=== PATIENT | male | born 1955 | race Caucasian/White ===

== ENCOUNTER 2017-04-01 15:29 | Emergency (ER) | payer SELFPAY ==
[2017-04-01 16:02] VITALS: BP 151/93
[2017-04-01] MEDS ORDERED: Lidocaine 2% PF * 5 ML VIAL INJ ONE (17:40)
--- NOTE | 2017-04-01 18:22 | UC ---
Laceration HPI - HPI Summary HPI Summary: 62 yo male fell today a few hours ago and lacerated his lower lip no dental trauma no jaw or neck pain Td UTD (about 6 mos ago) - History Of Current Complaint Chief Complaint: UCLaceration Stated Complaint: LIP LACERATION Time Seen by Provider: 04/01/17 17:28 Onset/Duration: Sudden Onset Severity: Mild Pain Intensity: 0 Pain Scale Used: 0-10 Numeric Aggravating Factors: Nothing Facial Trauma: 1 - laceration - Allergies/Home Medications Allergies/Adverse Reactions: Allergies Allergy/AdvReac Type Severity Reaction Status Date / Time No Known Allergies Allergy Verified 04/01/17 16:02 Home Medications: Home Medications NK [No Home Medications Reported] 04/01/17 [History Confirmed 04/01/17] PMH/Surg Hx/FS Hx/Imm Hx Previously Healthy: Yes - Surgical History Surgical History: None - Social History Alcohol Use: None Substance Use Type: None Smoking Status (MU): Never Smoked Tobacco Review of Systems Constitutional: Negative Skin: Negative Eyes: Negative ENT: Negative Respiratory: Negative Cardiovascular: Negative Gastrointestinal: Negative Genitourinary: Negative Motor: Negative Neurovascular: Negative Musculoskeletal: Negative Neurological: Negative Psychological: Negative Is Patient Immunocompromised?: No All Other Systems Reviewed And Are Negative: Yes Physical Exam Triage Information Reviewed: Yes Appearance: Well-Appearing, No Pain Distress, Well-Nourished Vital Signs: Initial Vital Signs Temp 98.3 F 04/01/17 15:57 Pulse 105 04/01/17 15:57 Resp 18 04/01/17 15:57 BP 151/93 04/01/17 15:57 Pulse Ox 99 04/01/17 15:57 Vital Signs Reviewed: Yes Eyes: Positive: Conjunctiva Clear ENT: Positive: Hearing grossly normal, Uvula midline. Negative: Nasal drainage , TMs normal Dental Exam: Normal Neck exam: Normal Respiratory: Positive: Lungs clear, Normal breath sounds, No respiratory distress Cardiovascular: Positive: RRR, No Murmur Musculoskeletal: Positive: ROM Intact, No Edema Neurological: Positive: Alert Psychological Exam: Normal Laceration Repair - Laceration Repair 1 Description: Irregular Laceration Size After Repair: Length (cm) - 1.4, Width (mm) - 3, Depth (mm) - 3 Modified For Repair: No Anesthesia Used: 2.0% Lido Cleansing Completed Via Routine Prep: Yes Irrigation With Pressure Irrigation Device: Yes Closure Method: Single Layer Suture Of: Mucus Membrane Suture Type: Nylon - 6-0 x 8 Laceration Course/Dx - Differential Dx - Laceration/Wound Provider Diagnoses: lower lip laceration Discharge - Discharge Plan Condition: Stable Disposition: HOME Patient Education Materials: Laceration (ED) Referrals: No Primary Care Phys,NOPCP [Primary Care Provider] - Additional Instructions: I suggest you gently clean laceration after eatling you can use soap and water or witchhazel gently dry apply a thin film of [employer] (available over the counter) soft no chew diet for 2-3 days as lip heals it will get a whitish film over it....this is normal for lip lacerations ice packs recheck for concerns of infection I suggest you have sutures removed in 5-7 days you have 8 stitches
== END 2017-04-01 18:44 | disposition home or self-care (01) ==
LOC: UCEAST 15:29
DX: S01.511A Laceration without foreign body of lip, initial encounter (principal); W19.XXXA Unspecified fall, initial encounter; Y93.9 Activity, unspecified; Y92.9 Unspecified place or not applicable
CPT/HCPCS: 12011; 99201; G0463

== ENCOUNTER 2018-07-26 10:12 | Emergency (ER) | payer SELFPAY ==
[2018-07-26] MEDS ORDERED: traMADol TAB* 50 MG PO ONE (11:04)
--- NOTE | 2018-07-26 11:06 | ED ---
Adult Trauma - HPI Summary HPI Summary: Pt is a 63 y/o M presenting to the ED with a chief complaint of a fall on . He states he was walking on top of a boat and fell off of it from a height of about 10-15 feet, hitting the dock on the way down on the L side of his chest. He reports pain in the L side of his back and anterior chest, as well as decreased ROM. Sx aggravated by movement of any kind. He denies LOC or hematuria. He is not on any anticoagulants and denies hx of DM or HTN. - History of Current Complaint Chief Complaint: EDChestWallPain Stated Complaint: POSS BROKEN RIB PER PT Time Seen by Provider: 07/26/18 10:52 Hx Obtained From: Patient Mechanism of Injury: Fall Loss of Consciousness: no loss of consciousness Onset/Duration: Started Days Ago, Still Present Onset of Pain: Immediate, Post Accident Onset Severity: Moderate Current Severity: Severe Pain Intensity: 8 Pain Scale Used: 0-10 Numeric Location: Chest - ribs Character: Aching Aggravating Factor(s): Movement Alleviating Factor(s): Nothing Associated Signs & Symptoms: Negative: Hematuria, Loss of Consciousness - Allergy/Home Medications Allergies/Adverse Reactions: Allergies Allergy/AdvReac Type Severity Reaction Status Date / Time No Known Allergies Allergy Verified 07/26/18 11:13 PMH/Surg Hx/FS Hx/Imm Hx Previously Healthy: Yes Endocrine/Hematology History: Denies: Hx Anticoagulant Therapy, Hx Diabetes, Hx Thyroid Disease Cardiovascular History: Denies: Hx Hypertension Respiratory History: Denies: Hx Asthma, Hx Chronic Obstructive Pulmonary Disease (COPD) GI History: Denies: Hx Ulcer Infectious Disease History: No Infectious Disease History: Denies: Hx Hepatitis, Hx Human Immunodeficiency Virus (HIV), Traveled Outside the [place] in Last 30 Days - Family History Known Family History: Negative: Cardiac Disease - Social History Alcohol Use: None Hx Substance Use: No Substance Use Type: Reports: None Hx Tobacco Use: No Smoking Status (MU): Never Smoked Tobacco Review of Systems Negative: hematuria Positive: Myalgia, Decreased ROM Neurological: Negative - LOC All Other Systems Reviewed And Are Negative: Yes Physical Exam - Summary Physical Exam Summary: Appearance: Well appearing, no pain distress Skin: warm, dry, reflects adequate perfusion Head/face: normal Eyes: EOMI, WENDI ENT: normal Neck: supple, non-tender Respiratory: CTA, breath sounds present Cardiovascular: RRR, pulses symmetrical Abdomen: non-tender, soft Musculoskeletal: tenderness over the L chest, strength/ROM intact Neuro: normal, sensory motor intact, A&Ox3 Triage Information Reviewed: Yes Vital Signs On Initial Exam: Initial Vitals Temp Pulse Resp BP Pulse Ox 98.3 F 104 16 154/101 95 07/26/18 10:13 07/26/18 10:13 07/26/18 10:13 07/26/18 10:13 07/26/18 10:13 Vital Signs Reviewed: Yes Diagnostics - Vital Signs Vital Signs Temp Pulse Resp BP Pulse Ox 07/26/18 10:13 98.3 F 104 16 154/101 95 - Laboratory Lab Statement: Any lab studies that have been ordered have been reviewed, and results considered in the medical decision making process. - Radiology Ribs w/ Chest XR Radiology Interpretation Completed By: Radiologist Summary of Radiographic Findings: Multiple L-sided rib fractures with a small L pleural effusion, without appreciable PTX. ED physician has reviewed this report. Adult Trauma Course/Dx - Course Course Of Treatment: Pt is a 63 y/o M presenting to the ED with L-sided chest pain d/t a 10-15 foot fall off of a boat on 07/24/18. He reports decreased ROM with this pain, with sx aggravated by movement. He denies LOC or hematuria. On physical exam, the pt had tenderness on the L chest area. I advised the pt to receive a CT scan to r/o any possible injury to his spleen, but he denied and adamantly stated he only wanted an XR to rule out a broken rib. Ribs w/ chest XR shows: Multiple L-sided rib fractures with a small L pleural effusion, without appreciable PTX. I discussed the results with the pt who further refused a CT scan d/t lack of insurance. I advised him he should have the imaging done but he adamantly refused. There is no further workup to be done, and the pt will be d/c'ed with a dx of multiple L rib fractures, of ribs 4, 5, 6 , and 7, with instructions to follow up with his PCP, as well as return with any new shortness of breath or other new or worsening symptoms. - Diagnoses Differential Diagnosis/HQI/PQRI: Positive: Contusion(s), Fracture, Hematoma(s) Provider Diagnoses: Multiple fractures of rib involving four or more ribs Discharge - Sign-Out/Discharge Documenting (check all that apply): Patient Departure Patient Received Moderate/Deep Sedation with Procedure: No - Discharge Plan Condition: Stable Disposition: HOME Prescriptions: Ibuprofen TAB* [Motrin TAB* 600 MG] 600 mg PO Q8H PRN #21 tab MDD 3 PRN Reason: Pain Ibuprofen/Diphenhydramine HCl [Advil Pm Liqui-Gels] 1 cap PO BEDTIME #15 cap Oxycodone HCl/Acetaminophen [Percocet] 1 tab PO TID #20 tab MDD 3 Referrals: [facility] [Outside] Additional Instructions: Please follow up with your primary care physician in 2-3 days. Return to the emergency department with any shortness of breath, as well as new or worsening symptoms. - Billing Disposition and Condition Condition: STABLE Disposition: Home - Attestation Statements Document Initiated by Scribe: Yes Documenting Scribe: Airam Deshpande Provider For Whom Betty is Documenting (Include Credential): Daniel Prasad MD. Scribe Attestation: Airam Valdez, rajed for Daniel Prasad MD. on 07/26/18 at 1609. Scribe Documentation Reviewed: Yes Provider Attestation: The documentation as recorded by the Airam rosario accurately reflects the service I personally performed and the decisions made by Daniel urias MD. Status of Scribe Document: Viewed
[2018-07-26 13:00] VITALS: BP 138/81
== END 2018-07-26 12:59 | disposition home or self-care (01) ==
LOC: ED 10:12
DX: S22.42XA Multiple fractures of ribs, left side, initial encounter for closed fracture (principal); W18.00XA Striking against unspecified object with subsequent fall, initial encounter; Y92.9 Unspecified place or not applicable; J90 Pleural effusion, not elsewhere classified
CPT/HCPCS: 99282; A9270-GY